=== PATIENT | female | born 1970 | race Caucasian/White ===

== ENCOUNTER 2017-03-11 11:46 | Inpatient (IN) | payer MEDICAID ==
[~2017-03-11] VITALS: Ht 165.1 cm; Wt 121.0 kg
[2017-03-11] MEDS ORDERED: ONDANSETRON 2MG/ML, 2ML ONE (12:21)
[2017-03-11] MEDS ORDERED: MORPHINE SULFATE 4 MG/ML, 1ML ONE (12:21)
[2017-03-11] MEDS ORDERED: HYDROmorphone 2 MG/ML, 1ML ONE ×2 (12:25→19:14)
[2017-03-11] MEDS ORDERED: HYDROmorphone 1 MG/ML, 1ML IVPush PRN (12:30)
[2017-03-11] MEDS ORDERED: MORPHINE SULFATE 4 MG/ML, 1ML IVPush PRN (12:30)
[2017-03-11] MEDS ORDERED: ONDANSETRON 2MG/ML, 2ML IVPush ONE (12:30)
[2017-03-11 12:39] LABS: MEAN CORPUSCULAR HEMOGLOBIN 27.9 pg (27.0-34.8); MEAN CORPUSCULAR HGB CONC 33.3 g/dL (32.4-35.8); MEAN CORPUSCULAR VOLUME 83.8 fL (80-100); MEAN PLATELET VOLUME 9.8 fL (7.4-10.4); PLATELET COUNT 449 x10^3/uL (130-400); RED BLOOD COUNT 4.62 x10^6/uL (3.82-5.3); RED CELL DISTRIBUTION WIDTH 15.1 % (9.6-15.2)
[2017-03-11 12:39] LABS: CULTURE INDICATED? YES; MICROSCOPIC INDICATED
[2017-03-11 12:55] LABS: ALBUMIN 2.3 g/dL (3.4-5.0); ANION GAP 11 mmol/L (5-15); CALCIUM 8.3 mg/dL (8.5-10.1); CHLORIDE 96 mmol/L (98-107)
[2017-03-11 13:00] LABS: ALANINE AMINOTRANSFERASE 46 U/L (12-78); ALKALINE PHOSPHATASE 225 U/L (45-117); BILIRUBIN,TOTAL 1.3 mg/dL (0.2-1.0); CREATININE 1.41 mg/dL (0.55-1.02); MD YES
[2017-03-11] MEDS ORDERED: SODIUM CHLORIDE 0.9% 1,000 ML IV ONE (13:00)
[2017-03-11] MEDS ORDERED: SODIUM CHLORIDE 0.9% 1,000ML IVBOLUS ONE ×2 (13:00→16:00)
[2017-03-11] MEDS ORDERED: HYDROmorphone 2 MG/ML, 1ML IVPush PRN (13:00)
[2017-03-11] MEDS ORDERED: CEFTRIAXONE PMX 1GM/50ML 50 ML IV ONE (13:00)
[2017-03-11 13:04] LABS: BAND#(MANUAL) 2.25 x10^3/uL; BANDS%(MANUAL) 7 % (0-7); LYMPH#(MANUAL) 7.06 x10^3/uL (1-3.4); LYMPHS% (MANUAL) 22 % (22-44); MONOS#(MANUAL) 2.25 x10^3/uL (0.3-2.7); MONOS% (MANUAL) 7 % (2-9); MYELOCYTES# (MANUAL) 0.32 x10^3/uL (0-0); MYELOCYTES% (MANUAL) 1 % (0-0); SEG#(MANUAL) 20.22 x10^3/uL (1.8-6.8); SEGS% (MANUAL) 63 % (42-75)
[2017-03-11 13:06] LABS: ANISOCYTOSIS 1+; POLYCHROMASIA 1+
[2017-03-11 13:07] LABS: <PLATELET ESTIMATE> INCREASED; LARGE PLATELETS 1+; TOXIC GRAN 1+
[2017-03-11] MEDS ORDERED: HYDR25TA6 PO (13:07)
[2017-03-11] MEDS ORDERED: CEFTRIAXONE PMX 1GM/50ML 50 ML ONE (13:19)
[2017-03-11] MEDS ORDERED: ONDANSETRON 2MG/ML, 2ML IVPush PRN (15:30)
[2017-03-11] MEDS ORDERED: DOCUSATE 100 MG CAPSULE PO PRN (15:30)
[2017-03-11] MEDS ORDERED: LABETALOL 5MG/ML, 20ML IVPush PRN (15:30)
[2017-03-11] MEDS ORDERED: BISACODYL 10 MG SUPP PR PRN (15:30)
[2017-03-11] MEDS: CEFTRIAXONE PMX 1GM/50ML 50 ML IV SCH (15:30)
[2017-03-11] MEDS ORDERED: POLYETHYLENE GLYCOL 17 GM PACKET PO PRN (15:30)
[2017-03-11] MEDS ORDERED: hydrALAzine 20 MG/ML, 1ML IVPush PRN (15:30)
[2017-03-11] MEDS ORDERED: ACETAMINOPHEN 325 MG TABLET PO PRN (15:30)
[2017-03-11] MEDS: HYDROmorphone 1 MG/ML, 1ML IV PRN ×2 (15:41→19:18)
[2017-03-11 15:43] VITALS: BP 131/83
[2017-03-11] MEDS: SODIUM CHLORIDE 0.9% 1,000 ML IV SCH (15:50)
[2017-03-11] MEDS ORDERED: POTASSIUM CHLORIDE 20 MEQ TAB.ER.PRT PO ONE (16:00)
[2017-03-11 16:05] LABS: THYROID STIMULATING HORMONE 1.16 mIU/L (0.358-3.740)
[2017-03-11] MEDS: HEPARIN 5,000 UNITS/ML, 1ML SQ SCH ×2 (16:12→23:28)
[2017-03-11 18:57] VITALS: BP 115/70
[2017-03-11] MEDS: HYDROcodone/APAP 5/325 TABLET PO PRN (23:28)
[2017-03-12 03:05] VITALS: BP 114/76
[2017-03-12] MEDS: HYDROcodone/APAP 5/325 TABLET PO PRN ×4 (03:15→21:53)
[2017-03-12] MEDS: GUAIFENESIN/DM 200-20MG, 10ML UDC PO PRN (03:15)
[2017-03-12] MEDS: SODIUM CHLORIDE 0.9% 1,000 ML IV SCH ×3 (03:15→17:54)
[2017-03-12 05:01] LABS: MEAN CORPUSCULAR HEMOGLOBIN 28.2 pg (27.0-34.8); MEAN CORPUSCULAR HGB CONC 33.6 g/dL (32.4-35.8); MEAN CORPUSCULAR VOLUME 83.8 fL (80-100); MEAN PLATELET VOLUME 9.6 fL (7.4-10.4); PLATELET COUNT 355 x10^3/uL (130-400); RED BLOOD COUNT 3.94 x10^6/uL (3.82-5.3); RED CELL DISTRIBUTION WIDTH 15.1 % (9.6-15.2)
[2017-03-12 05:06] LABS: CHLORIDE 106 mmol/L (98-107)
[2017-03-12 05:22] LABS: ALANINE AMINOTRANSFERASE 37 U/L (12-78); ALBUMIN 1.8 g/dL (3.4-5.0); ALKALINE PHOSPHATASE 172 U/L (45-117); ANION GAP 9 mmol/L (5-15); BILIRUBIN,TOTAL 0.9 mg/dL (0.2-1.0); CALCIUM 7.2 mg/dL (8.5-10.1); CREATININE 1.14 mg/dL (0.55-1.02); TOTAL PROTEIN 6.7 g/dL (6.4-8.2)
[2017-03-12 06:08] LABS: MD YES
[2017-03-12 06:11] LABS: BAND#(MANUAL) 2.18 x10^3/uL; BANDS%(MANUAL) 9 % (0-7); LYMPHS% (MANUAL) 19 % (22-44); MONOS#(MANUAL) 2.42 x10^3/uL (0.3-2.7); MONOS% (MANUAL) 10 % (2-9); REACTIVE LYMPHS # (MANUAL) 0.24 x10^3/uL (0-0); REACTIVE LYMPHS % (MANUAL) 1 % (0-0); SEG#(MANUAL) 14.76 x10^3/uL (1.8-6.8); SEGS% (MANUAL) 61 % (42-75)
[2017-03-12 06:12] LABS: ANISOCYTOSIS 1+; POLYCHROMASIA 1+
[2017-03-12 06:13] LABS: HYPOCHROMIA 1+
[2017-03-12 06:14] LABS: <PLATELET ESTIMATE> ADEQUATE; LARGE PLATELETS 1+; TOXIC GRAN 1+
[2017-03-12 06:49] VITALS: BP 112/74
[2017-03-12] MEDS ORDERED: POTASSIUM CHLORIDE 20 MEQ TAB.ER.PRT PO ONE (07:30)
[2017-03-12] MEDS: HEPARIN 5,000 UNITS/ML, 1ML SQ SCH ×3 (07:50→23:22)
[2017-03-12] MEDS ORDERED: HYDROmorphone 2 MG/ML, 1ML ONE ×2 (07:55→23:15)
[2017-03-12] MEDS: HYDROmorphone 1 MG/ML, 1ML IV PRN ×2 (07:57→23:18)
[2017-03-12 12:20] VITALS: BP 125/79
[2017-03-12] MEDS: CEFTRIAXONE PMX 1GM/50ML 50 ML IV SCH (13:46)
[2017-03-12] MEDS ORDERED: CALCIUM CARBONATE 500 MG TAB.CHEW PO PRN (16:30)
[2017-03-12 19:14] VITALS: BP 108/70
[2017-03-12] MEDS: CEFTRIAXONE 2,000 MG in SODIUM CHLORIDE 0.9% 50 ML IV SCH (23:53)
[2017-03-13] MEDS ORDERED: CEFTRIAXONE PMX 2GM/50ML 50 ML IV SCH
[2017-03-13 00:55] VITALS: BP 121/84
[2017-03-13] MEDS: HYDROcodone/APAP 5/325 TABLET PO PRN ×2 (03:39→22:05)
[2017-03-13 05:15] LABS: ALBUMIN 1.7 g/dL (3.4-5.0); ANION GAP 9 mmol/L (5-15); CALCIUM 7.5 mg/dL (8.5-10.1); CHLORIDE 107 mmol/L (98-107)
[2017-03-13 05:16] LABS: BASOPHILS # (AUTO) 0.03 x10^3/uL (0-0.1); BASOPHILS % (AUTO) 0 % (0-1); EOSINOPHILS # (AUTO) 0.29 x10^3/uL (0-0.4); EOSINOPHILS % (AUTO) 2 % (1-7); LYMPHOCYTES # (AUTO) 2.86 x10^3/uL (1-3.4); LYMPHOCYTES % (AUTO) 17 % (22-44); MD NO; MEAN CORPUSCULAR HGB CONC 32.9 g/dL (32.4-35.8); MEAN PLATELET VOLUME 9.6 fL (7.4-10.4); MONOCYTES # (AUTO) 1.13 x10^3/uL (0.2-0.8); MONOCYTES % (AUTO) 7 % (2-9); NEUTROPHILS # (AUTO) 12.29 x10^3/uL (1.8-6.8); NEUTROPHILS % (AUTO) 74 % (42-75); PLATELET COUNT 376 x10^3/uL (130-400); RED BLOOD COUNT 3.79 x10^6/uL (3.82-5.3); RED CELL DISTRIBUTION WIDTH 15.1 % (9.6-15.2)
[2017-03-13 05:19] LABS: ALANINE AMINOTRANSFERASE 32 U/L (12-78); ALKALINE PHOSPHATASE 169 U/L (45-117); BILIRUBIN,TOTAL 0.4 mg/dL (0.2-1.0); CREATININE 1.01 mg/dL (0.55-1.02); TOTAL PROTEIN 6.7 g/dL (6.4-8.2)
[2017-03-13] MEDS ORDERED: HYDROmorphone 2 MG/ML, 1ML ONE ×3 (05:57→15:05)
[2017-03-13] MEDS: HYDROmorphone 1 MG/ML, 1ML IV PRN ×3 (06:01→15:08)
[2017-03-13 08:52] VITALS: BP 113/76
[2017-03-13] MEDS: HEPARIN 5,000 UNITS/ML, 1ML SQ SCH ×2 (08:55→18:41)
[2017-03-13] MEDS: GUAIFENESIN/DM 200-20MG, 10ML UDC PO PRN (09:08)
[2017-03-13 14:49] VITALS: BP 115/80
[2017-03-13 18:25] VITALS: BP 153/93
[2017-03-13 18:32] VITALS: BP 116/77
[2017-03-13] MEDS: BUTALB/APAP/CAFFEINE 50MG/325MG/40MG PO PRN (20:52)
[2017-03-14] MEDS: CEFTRIAXONE 2,000 MG in SODIUM CHLORIDE 0.9% 50 ML IV SCH ×2 (00:08→23:42)
[2017-03-14] MEDS: SODIUM CHLORIDE 0.9% 1,000 ML IV SCH ×3 (01:20→20:07)
[2017-03-14 02:28] VITALS: BP 105/68
[2017-03-14] MEDS: HEPARIN 5,000 UNITS/ML, 1ML SQ SCH ×3 (02:31→21:18)
[2017-03-14 04:53] LABS: BASOPHILS # (AUTO) 0.05 x10^3/uL (0-0.1); BASOPHILS % (AUTO) 0 % (0-1); EOSINOPHILS # (AUTO) 0.36 x10^3/uL (0-0.4); EOSINOPHILS % (AUTO) 3 % (1-7); LYMPHOCYTES # (AUTO) 3.24 x10^3/uL (1-3.4); LYMPHOCYTES % (AUTO) 27 % (22-44); MD NO; MEAN CORPUSCULAR HEMOGLOBIN 27.5 pg (27.0-34.8); MEAN CORPUSCULAR HGB CONC 31.9 g/dL (32.4-35.8); MEAN PLATELET VOLUME 9.5 fL (7.4-10.4); MONOCYTES # (AUTO) 0.62 x10^3/uL (0.2-0.8); MONOCYTES % (AUTO) 5 % (2-9); NEUTROPHILS # (AUTO) 7.89 x10^3/uL (1.8-6.8); NEUTROPHILS % (AUTO) 65 % (42-75); PLATELET COUNT 406 x10^3/uL (130-400); RED BLOOD COUNT 3.78 x10^6/uL (3.82-5.3); RED CELL DISTRIBUTION WIDTH 15.6 % (9.6-15.2)
[2017-03-14 05:06] LABS: ALBUMIN 1.7 g/dL (3.4-5.0); ANION GAP 8 mmol/L (5-15); CALCIUM 7.8 mg/dL (8.5-10.1); CHLORIDE 110 mmol/L (98-107)
[2017-03-14 05:10] LABS: ALANINE AMINOTRANSFERASE 29 U/L (12-78); ALKALINE PHOSPHATASE 156 U/L (45-117); BILIRUBIN,TOTAL 0.4 mg/dL (0.2-1.0); CREATININE 0.85 mg/dL (0.55-1.02); TOTAL PROTEIN 6.1 g/dL (6.4-8.2)
[2017-03-14 07:49] VITALS: BP 93/63
[2017-03-14] MEDS ORDERED: GOLYTELY 4,000ML ORAL.SOL PO ONE (08:30)
[2017-03-14] MEDS: HYDROcodone/APAP 5/325 TABLET PO PRN ×2 (12:41→23:24)
[2017-03-14 15:02] VITALS: BP 131/87
[2017-03-14 20:03] VITALS: BP 132/90
[2017-03-14] MEDS: BUTALB/APAP/CAFFEINE 50MG/325MG/40MG PO PRN (21:18)
[2017-03-15 01:01] VITALS: BP 126/85
[2017-03-15] MEDS: HEPARIN 5,000 UNITS/ML, 1ML SQ SCH ×3 (05:18→21:00)
[2017-03-15] MEDS: HYDROcodone/APAP 5/325 TABLET PO PRN ×3 (05:22→18:14)
[2017-03-15] MEDS: SODIUM CHLORIDE 0.9% 1,000 ML IV SCH ×2 (06:16→16:07)
[2017-03-15 07:48] VITALS: BP 125/78
[2017-03-15 13:22] VITALS: BP 144/93
[2017-03-15 19:07] VITALS: BP 141/93
[2017-03-15] MEDS ORDERED: FLU VACC QS2017-18 (36MOS+) UP/PF 0.5 ML IM-VACC ONE (20:00)
[2017-03-15] MEDS ORDERED: PNEUMOCOCCAL 23 VACCINE IM-VACC ONE (20:00)
[2017-03-16] MEDS: HYDROcodone/APAP 5/325 TABLET PO PRN ×6 (00:05→21:57)
[2017-03-16] MEDS: CEFTRIAXONE 2,000 MG in SODIUM CHLORIDE 0.9% 50 ML IV SCH (00:05)
[2017-03-16] MEDS: SODIUM CHLORIDE 0.9% 1,000 ML IV SCH ×3 (01:30→21:14)
[2017-03-16 03:52] VITALS: BP 127/83
[2017-03-16] MEDS: HEPARIN 5,000 UNITS/ML, 1ML SQ SCH ×3 (05:19→21:56)
[2017-03-16 06:59] VITALS: BP 138/81
[2017-03-16 08:10] LABS: MEAN CORPUSCULAR HEMOGLOBIN 27.7 pg (27.0-34.8); MEAN CORPUSCULAR VOLUME 83.8 fL (80-100); MEAN PLATELET VOLUME 8.6 fL (7.4-10.4); PLATELET COUNT 567 x10^3/uL (130-400); RED BLOOD COUNT 4.06 x10^6/uL (3.82-5.3); RED CELL DISTRIBUTION WIDTH 15.3 % (9.6-15.2)
[2017-03-16 08:15] LABS: ALANINE AMINOTRANSFERASE 43 U/L (12-78); ANION GAP 8 mmol/L (5-15); CALCIUM 7.4 mg/dL (8.5-10.1); CHLORIDE 111 mmol/L (98-107); CREATININE 0.86 mg/dL (0.55-1.02)
[2017-03-16] MEDS: POLYETHYLENE GLYCOL 17 GM PACKET PO SCH (08:16)
[2017-03-16 08:18] LABS: ALKALINE PHOSPHATASE 185 U/L (45-117); BILIRUBIN,TOTAL 0.2 mg/dL (0.2-1.0); TOTAL PROTEIN 6.6 g/dL (6.4-8.2)
[2017-03-16 08:24] LABS: BASOPHILS # (AUTO) 0.16 x10^3/uL (0-0.1); BASOPHILS % (AUTO) 1 % (0-1); EOSINOPHILS # (AUTO) 0.44 x10^3/uL (0-0.4); EOSINOPHILS % (AUTO) 3 % (1-7); LYMPHOCYTES # (AUTO) 3.98 x10^3/uL (1-3.4); LYMPHOCYTES % (AUTO) 27 % (22-44); MD NO; MONOCYTES # (AUTO) 0.68 x10^3/uL (0.2-0.8); MONOCYTES % (AUTO) 5 % (2-9); NEUTROPHILS # (AUTO) 9.47 x10^3/uL (1.8-6.8); NEUTROPHILS % (AUTO) 64 % (42-75)
[2017-03-16 13:02] VITALS: BP 144/99
[2017-03-16 19:58] VITALS: BP 136/89
[2017-03-17] MEDS: CEFTRIAXONE 2,000 MG in SODIUM CHLORIDE 0.9% 50 ML IV SCH (00:03)
[2017-03-17 01:53] VITALS: BP 149/84
[2017-03-17] MEDS: HYDROcodone/APAP 5/325 TABLET PO PRN ×4 (04:41→20:30)
[2017-03-17] MEDS: HEPARIN 5,000 UNITS/ML, 1ML SQ SCH ×3 (04:41→20:30)
[2017-03-17] MEDS: SODIUM CHLORIDE 0.9% 1,000 ML IV SCH ×2 (06:32→16:21)
[2017-03-17 06:55] VITALS: BP 155/91
[2017-03-17] MEDS: POLYETHYLENE GLYCOL 17 GM PACKET PO SCH (09:50)
[2017-03-17 12:52] VITALS: BP 142/91
[2017-03-17 18:40] VITALS: BP 143/92
[2017-03-18] MEDS: CEFTRIAXONE 2,000 MG in SODIUM CHLORIDE 0.9% 50 ML IV SCH (00:26)
[2017-03-18 01:22] VITALS: BP 150/98
[2017-03-18] MEDS: SODIUM CHLORIDE 0.9% 1,000 ML IV SCH ×3 (01:36→21:52)
[2017-03-18 02:51] VITALS: BP 112/64
[2017-03-18] MEDS: HYDROcodone/APAP 5/325 TABLET PO PRN ×5 (02:54→21:51)
[2017-03-18] MEDS: HEPARIN 5,000 UNITS/ML, 1ML SQ SCH ×3 (05:54→21:51)
[2017-03-18 07:23] VITALS: BP 138/86
[2017-03-18] MEDS: POLYETHYLENE GLYCOL 17 GM PACKET PO SCH (07:41)
[2017-03-18 13:21] VITALS: BP 145/83
[2017-03-18 19:29] VITALS: BP 119/78
[2017-03-19] MEDS: CEFTRIAXONE PMX 2GM/50ML 50 ML IVPB SCH (01:15)
[2017-03-19 01:18] VITALS: BP_SYST 130; BP_DIAS 80; BP_DIAS 90
[2017-03-19] MEDS: HEPARIN 5,000 UNITS/ML, 1ML SQ SCH ×3 (06:17→21:53)
[2017-03-19] MEDS: HYDROcodone/APAP 5/325 TABLET PO PRN ×3 (06:17→21:58)
[2017-03-19 07:32] VITALS: BP 129/81
[2017-03-19] MEDS: POLYETHYLENE GLYCOL 17 GM PACKET PO SCH (08:39)
[2017-03-19] MEDS: SODIUM CHLORIDE 0.9% 1,000 ML IV SCH ×2 (08:43→18:27)
[2017-03-19 13:04] VITALS: BP 141/86
[2017-03-19 19:05] VITALS: BP 134/82
[2017-03-20] MEDS: CEFTRIAXONE PMX 2GM/50ML 50 ML IVPB SCH ×2 (00:11→23:27)
[2017-03-20 03:39] VITALS: BP 129/78
[2017-03-20] MEDS: HYDROcodone/APAP 5/325 TABLET PO PRN ×2 (03:52→23:26)
[2017-03-20] MEDS: HEPARIN 5,000 UNITS/ML, 1ML SQ SCH ×3 (05:52→21:08)
[2017-03-20] MEDS: SODIUM CHLORIDE 0.9% 1,000 ML IV SCH ×3 (05:52→23:26)
[2017-03-20 06:30] LABS: BASOPHILS # (AUTO) 0.06 x10^3/uL (0-0.1); BASOPHILS % (AUTO) 1 % (0-1); EOSINOPHILS # (AUTO) 0.36 x10^3/uL (0-0.4); EOSINOPHILS % (AUTO) 3 % (1-7); LYMPHOCYTES # (AUTO) 4.08 x10^3/uL (1-3.4); LYMPHOCYTES % (AUTO) 32 % (22-44); MD NO; MEAN CORPUSCULAR HEMOGLOBIN 27.8 pg (27.0-34.8); MEAN PLATELET VOLUME 7.9 fL (7.4-10.4); MONOCYTES # (AUTO) 0.53 x10^3/uL (0.2-0.8); MONOCYTES % (AUTO) 4 % (2-9); NEUTROPHILS # (AUTO) 7.87 x10^3/uL (1.8-6.8); NEUTROPHILS % (AUTO) 61 % (42-75); PLATELET COUNT 604 x10^3/uL (130-400); RED BLOOD COUNT 3.85 x10^6/uL (3.82-5.3); RED CELL DISTRIBUTION WIDTH 15.8 % (9.6-15.2)
[2017-03-20 06:43] LABS: ALANINE AMINOTRANSFERASE 21 U/L (12-78); ALBUMIN 2.2 g/dL (3.4-5.0); ANION GAP 8 mmol/L (5-15); CALCIUM 7.7 mg/dL (8.5-10.1); CHLORIDE 110 mmol/L (98-107); CREATININE 0.84 mg/dL (0.55-1.02)
[2017-03-20 06:45] LABS: ALKALINE PHOSPHATASE 181 U/L (45-117); BILIRUBIN,TOTAL 0.1 mg/dL (0.2-1.0); TOTAL PROTEIN 6.5 g/dL (6.4-8.2)
[2017-03-20 07:08] VITALS: BP 129/88
[2017-03-20] MEDS: POLYETHYLENE GLYCOL 17 GM PACKET PO SCH (08:56)
[2017-03-20 14:00] VITALS: BP 146/89
[2017-03-20 19:05] VITALS: BP 138/87
[2017-03-21 00:59] VITALS: BP 149/93
[2017-03-21] MEDS: HEPARIN 5,000 UNITS/ML, 1ML SQ SCH ×2 (04:43→13:00)
[2017-03-21] MEDS: HYDROcodone/APAP 5/325 TABLET PO PRN (04:51)
[2017-03-21 06:46] VITALS: BP 117/73
[2017-03-21] MEDS: POLYETHYLENE GLYCOL 17 GM PACKET PO SCH (08:56)
[2017-03-21] MEDS: SODIUM CHLORIDE 0.9% 1,000 ML IV SCH (09:00)
[2017-03-21] MEDS ORDERED: CEFT1FRO2 IV (12:03)
[2017-03-21 12:16] VITALS: BP 143/90
== END 2017-03-21 13:43 | disposition home or self-care (01) | DRG 871 ==
LOC: ED 13:20 → EDIP 13:45 → 4NOR 14:56 → DCLOUNGE 03-21 13:19
PROVIDERS: ADMIT Internal Medicine Pulmonary Disease; ATTEND Internal Medicine
PROC: B5181ZA Fluoroscopy of Superior Vena Cava using Low Osmolar Contrast, Guidance (ICD-10-PCS; principal; 2017-03-19)
PROC: 02HV33Z Insertion of Infusion Device into Superior Vena Cava, Percutaneous Approach (ICD-10-PCS; 2017-03-19)
PROC: B548ZZA Ultrasonography of Superior Vena Cava, Guidance (ICD-10-PCS; 2017-03-19)
DX: A41.9 Sepsis, unspecified organism (principal); E43 Unspecified severe protein-calorie malnutrition; N17.9 Acute kidney failure, unspecified; N10 Acute pyelonephritis; E87.1 Hypo-osmolality and hyponatremia; Z68.41 Body mass index [BMI] 40.0-44.9, adult; B96.20 Unspecified Escherichia coli [E. coli] as the cause of diseases classified elsewhere; D64.9 Anemia, unspecified; E66.9 Obesity, unspecified; E86.0 Dehydration; E87.6 Hypokalemia; F17.210 Nicotine dependence, cigarettes, uncomplicated; I10 Essential (primary) hypertension; K59.00 Constipation, unspecified; D47.3 Essential (hemorrhagic) thrombocythemia; Z90.49 Acquired absence of other specified parts of digestive tract; Z98.51 Tubal ligation status
CPT/HCPCS: 36415; 36569; 71046; 76770; 76937; 77001; 80053; 81001; 83605; 83690; 83735; 84100; 84145; 84443; 84703; 85025; 87040; 87077; 87086; 87186; 90686; 90732; 93005; 96361; 96365; 96375; J0696; J1170; J1644; J2405; C1751; J7030